=== PATIENT | female | born 1960 | race Hispanic/Latino ===

== ENCOUNTER 2019-09-04 00:35 | Emergency (ER) | payer OTHER ==
[2019-09-04 01:01] LABS: BILIRUBIN,URINE Negative (NEGATIVE); COLOR,URINE Yellow (YELLOW); GLUCOSE, URINE (UA) Negative (NEGATIVE); KETONES,URINE Negative (NEGATIVE); LEUKOCYTE ESTERASE ,URINE Negative (NEGATIVE); NITRATE,URINE Negative (NEGATIVE); OCCULT BLOOD,URINE Negative (NEGATIVE); PROTEIN,URINE Negative (NEGATIVE); UROBILINOGEN,URINE 0.2 mg/dL (0.2-1.0)
[2019-09-04 01:02] LABS: APPEARANCE,URINE CLEAR (CLEAR)
[2019-09-04 01:03] LABS: BASOPHILS % (AUTO) 1.1 % (0.0-5.0); EOSINOPHILS % (AUTO) 3.3 % (0.0-8.0); HEMATOCRIT 36.9 % (36-48); LYMPHOCYTES % (AUTO) 50.9 % (21.0-51.0); MEAN CORPUSCULAR HEMOGLOBIN 30.2 pg (27.0-33.0); MEAN CORPUSCULAR HGB CONC 34.1 g/dL (32.0-36.0); MEAN CORPUSCULAR VOLUME 88.4 fL (79-99); MONOCYTES % (AUTO) 7.2 % (3.0-13.0); NEUTROPHILS % (AUTO) 37.5 % (40.0-77.0); NUCLEATED RED BLOOD CELLS 0.1 % (0.0-0.19); PLATELET COUNT (AUTO) 259 K/uL (130-400); RED BLOOD CELL COUNT(AUTO) 4.18 MIL/uL (4.00-5.50); WHITE BLOOD COUNT (AUTO) 9.7 K/uL (4.8-10.8)
[2019-09-04] MEDS ORDERED: SODIUM CHLORIDE 0.9% 1000ML 1,000 ML IV ONE (01:25)
[2019-09-04 01:27] LABS: CARBON DIOXIDE 23 mmol/L (21-32); CHLORIDE 102 mmol/L (101-111); CREATININE 0.4 mg/dL (0.5-1.5); GLOMERULAR FILTR. RATE CALC 172 mL/min (>60); GLUCOSE,RANDOM 135 mg/dL (70-105); POTASSIUM 4.4 mmol/L (3.5-5.1); SODIUM SERUM 137 mmol/L (136-145); UREA NITROGEN, BLOOD 14 mg/dL (7-18)
[2019-09-04 01:31] LABS: ALANINE AMINOTRANSFERASE 14 U/L (12-78); ALBUMIN 3.6 g/dL (3.5-5.0); ASPARTATE AMINOTRANSFERASE 25 U/L (10-37); BILIRUBIN,DIRECT < 0.1 mg/dL (0.0-0.3); BILIRUBIN,TOTAL 0.4 mg/dL (0.2-1.0); CREATINE KINASE, TOTAL 137 U/L (21-232); TOTAL PROTEIN, SERUM 7.8 g/dL (6.0-8.3)
== END 2019-09-04 03:25 | disposition home or self-care (01) ==
LOC: EDH 00:35
DX: F32.89 Other specified depressive episodes (principal); I10 Essential (primary) hypertension; R55 Syncope and collapse; R53.1 Weakness; R63.0 Anorexia
CPT/HCPCS: 36415; 71046; 80048; 80076; 81003; 82550; 84443; 84484; 85025; 87804 ×2; 93005; 96360; 99285; J7030